=== PATIENT | male | born 1990 | race Caucasian/White ===

== ENCOUNTER 2024-03-02 14:07 | Inpatient (IN) | payer OTHER ==
[~2024-03-02] VITALS: Ht 167.6 cm; Wt 99.8 kg
[2024-03-02] MEDS ORDERED: ZOLPIDEM TARTRATE 10 MG TABLET PO PRN (14:30)
[2024-03-02] MEDS ORDERED: ACETAMINOPHEN ES 500 MG TABLET PO PRN (14:30)
[2024-03-02] MEDS ORDERED: LORAZEPAM 1 MG TABLET FOR AGITATION PO PRN (14:30)
[2024-03-02] MEDS ORDERED: IBUPROFEN 200 MG TABLET PO PRN (14:30)
[2024-03-02] MEDS ORDERED: MAGNESIUM HYDROXIDE 30 ML UDC PO PRN (14:30)
[2024-03-02] MEDS ORDERED: MAG HYDROX/AL HYDROX/SIMETH 30 ML UDC PO PRN (14:30)
[2024-03-02 16:00] VITALS: BP 120/90; TEMP 98.1; O2SAT 98
[2024-03-02 21:31] VITALS: BP 126/91; TEMP 97.7; O2SAT 98
[2024-03-03 07:00] VITALS: BP 109/75; TEMP 97.9; O2SAT 100
[2024-03-03 16:00] VITALS: BP 123/61; TEMP 97.4; O2SAT 96
[2024-03-04 07:00] VITALS: BP 120/100; TEMP 98.6; O2SAT 98
[2024-03-04 16:16] VITALS: BP 132/98; TEMP 98.4; O2SAT 99
[2024-03-04 20:00] VITALS: BP 132/100; TEMP 97.6; O2SAT 97
[2024-03-05 07:30] VITALS: BP 109/63; TEMP 98.1; O2SAT 96
[2024-03-16] MEDS ORDERED: ZOLPIDEM TARTRATE 10 MG TABLET PO PRN (13:00)
[2024-03-16] MEDS ORDERED: LORAZEPAM 1 MG TABLET FOR AGITATION PO PRN (13:00)
[2024-03-17] MEDS ORDERED: INVEST MED CVL-231-2002 PO SCH (10:00)
[2024-03-23] MEDS ORDERED: ZOLPIDEM TARTRATE 10 MG TABLET PO PRN (13:00)
[2024-03-23] MEDS ORDERED: LORAZEPAM 1 MG TABLET FOR AGITATION PO PRN (13:00)
[2024-03-31] MEDS ORDERED: LORAZEPAM 1 MG TABLET FOR AGITATION PO PRN (13:00)
[2024-03-31] MEDS ORDERED: ZOLPIDEM TARTRATE 10 MG TABLET PO PRN (13:00)
[2024-04-06] MEDS ORDERED: ZOLPIDEM TARTRATE 10 MG TABLET PO PRN (13:00)
[2024-04-06] MEDS ORDERED: LORAZEPAM 1 MG TABLET FOR AGITATION PO PRN (13:00)
[2024-04-13] MEDS ORDERED: ZOLPIDEM TARTRATE 10 MG TABLET PO PRN (13:00)
[2024-04-13] MEDS ORDERED: LORAZEPAM 1 MG TABLET FOR AGITATION PO PRN (13:00)
[2024-04-20] MEDS ORDERED: LORAZEPAM 1 MG TABLET FOR AGITATION PO PRN (13:00)
[2024-04-20] MEDS ORDERED: ZOLPIDEM TARTRATE 10 MG TABLET PO PRN (13:00)
[2024-04-27] MEDS ORDERED: ZOLPIDEM TARTRATE 10 MG TABLET PO PRN (13:00)
[2024-04-27] MEDS ORDERED: LORAZEPAM 1 MG TABLET FOR AGITATION PO PRN (13:00)
== END 2024-03-05 11:00 | disposition left against medical advice (07) | DRG 951 ==
LOC: MED 14:10
PROVIDERS: ADMIT Psychiatry & Neurology Psychiatry; ATTEND Psychiatry & Neurology Psychiatry
DX: Z00.6 Encounter for examination for normal comparison and control in clinical research program (principal); F20.0 Paranoid schizophrenia
CPT/HCPCS: G0378